=== PATIENT | female | born 1930 ===

== ENCOUNTER → 2017-10-26 | Outpatient (CLI) | payer OTHER ==
[2017-11-03 11:34] LABS: BASOPHILS % 0.4 % (0.0-1.0); EOSINOPHILS % 1.8 % (0.0-6.0); HEMATOCRIT 31.6 % (34.2-44.1); HEMOGLOBIN 10.1 g/dL (12.0-16.0); LYMPHOCYTES % 11.4 % (18.0-39.1); MEAN CORPUSCULAR HEMOGLOBIN 29.4 pg (28-32); MEAN CORPUSCULAR VOLUME 91.9 fL (81-99); MONOCYTES # (AUTO) 0.5 (0.2-0.8); MONOCYTES % 5.9 % (4.4-11.3); NEUTROPHILS % 79.1 % (38.7-80.0); PLATELET COUNT 427 x10e3/uL (140-360); RED BLOOD COUNT 3.44 x10e6/uL (3.6-5.1); RED CELL DISTRIBUTION WIDTH 17.3 % (11.7-14.4)
[2017-11-03 11:35] LABS: EOSINOPHILS # (AUTO) 0.2 (0.0-0.4)
== END ==
LOC: NPA 13:00
DX: R69 Illness, unspecified (principal)
CPT/HCPCS: 36415; 85025